=== PATIENT | female | born 1975 | race Caucasian/White ===

== ENCOUNTER 2024-12-21 16:53 | Emergency (ER) | payer OTHER, SELFPAY ==
[2024-12-21 16:58] VITALS: BP 120/85
[2024-12-21 17:32] LABS: % Basophils 0.3 % (0-2); % Eosinophils 1.7 % (0-6); % Immature Granulocytes 0.2 % (0-0.5); % Lymphocytes 23.1 % (20.5-51.1); % Monocytes 9.4 % (1.7-9.3); % Neutrophils 65.3 % (42.2-75.2); Absolute Eosinophils 0.2 10^3/uL (0-0.7); Absolute Lymphocytes 2.1 10^3/uL (1.2-3.4); Absolute Monocytes 0.9 10^3/uL (0.1-0.6); Absolute Neutrophils 5.9 10^3/uL (1.4-6.5); Hematocrit 40.3 % (37.0-47.0); Mean Corp Hgb Conc. 34.7 g/dL (33.0-37.0); Mean Corpuscular Hgb 30.2 pg (27.0-31.0); Mean Platelet Volume 9.9 fL (7.4-10.4); Nucleated Red Blood Cells % 0 %; Platelet Count 257 10^3/uL (130-400); Red Blood Cell Count 4.63 10^6/uL (4.20-5.40); Red Cell Dist. Width 12.1 % (11.5-14.5)
[2024-12-21 17:40] LABS: ALT (SGPT) 25 U/L (0-35); AST (SGOT) 32 U/L (14-36); Albumin 4.5 g/dl (3.5-5.0); Alkaline Phosphatase 79 U/L (38-126); Blood Urea Nitrogen 18 mg/dl (7-17); Carbon Dioxide 23 mmol/L (22-30); Chloride 109 mmol/L (98-107); Glucose 94 mg/dl (70-99); Potassium 4.8 mmol/L (3.5-5.1); Sodium 141 mmol/L (135-145); Total Bilirubin 0.6 mg/dl (0.2-1.3); Total Protein 7.7 g/dl (6.3-8.2); eGFR > 60.00
[2024-12-21 18:36] LABS: Troponin I < 0.012 ng/ml
[2024-12-21 18:46] VITALS: BP 96/78
[2024-12-21 19:00] VITALS: BP 111/76
[2024-12-21 19:09] VITALS: BMI 28.7
--- NOTE | 2024-12-21 19:36 | ED.GENMED ---
History of Present Illness
General
Chief Complaint: Breathing Problem
Source: patient and spouse
Exam Limitations: none
Time Seen by Provider: 12/21/24 18:47
Nursing documentation reviewed up to this point in time: agreed with
History of Present Illness
History of Present Illness:
49-year-old female with past medical history of migraines presents to the ER for evaluation of chest pain. Patient reports onset of symptoms about a week ago and they became acutely worse last night. She reports a sharp pain right chest wall that
radiates towards scapula. Worse with movement, palpation, coughing, breathing. No relieving factors noted. 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 She does have some
associated shortness of breath. She denies any significant cough. She denies any fevers or chills. She denies any GI symptoms. Denies swelling or pain in the legs. She denies similar symptoms in the past. She denies any history of DVT/PE.
Denies any history of cardiac issues.
Past History
Past History
ED Past Medical History: Other (Migraines)
ED Past Surgical History: None
Social History
Tobacco: Non-smoker
Alcohol: None
Drug: None
Living: with family
Employment: Employed
Review of Systems
Review of Systems
All Other Systems: ROS reviewed and negative except as documented in HPI and ROS
Constitutional: Denies fever or chills
Respiratory: Reports trouble breathing; Denies cough
Cardiac: Reports chest pain; Denies palpitations
ABD/GI: Denies abdominal pain, nausea or vomiting
: Denies flank pain
Musculoskeletal: Denies neck pain or back pain
Neurological: Denies dizzy or headache
Phy Exam
Physical Exam
Physical Exam:
General: Awake, alert, oriented x3; no acute distress
Head: Normocephalic, atraumatic
Eyes: Conjunctiva normal, sclera anicteric
Throat: Airway intact, handling secretions
Neck: Trachea midline, supple without meningismus
Lungs: Clear to auscultation bilaterally, no wheezing, rales, rhonchi
Heart: Regular rate and rhythm, no murmurs, gallops, or rubs; mild tenderness right chest wall
Abd: Soft, non distended, nontender
Neuro: No gross deficits
Skin: no rash in area of concern
Extremities: No edema in extremities, equal pulses in all extremities
Scores
Heart Failure Risk
Heart Failure Risk Score: Not Applicable
Heart Score for Chest Pain Patients
STEMI patient?: No
History: Slightly or Non-Suspicious
ECG: Normal
Age: >45 - <65 years
Risk Factors: 1 or 2 Risk Factors
Troponin: </= Normal Limit
Heart Score for Chest Pain Patients: 2
Heart Score Risk: 2.5% MACE over next 6 weeks
PE Wells Score
Symptoms of DVT: No
No alternative diagnosis better explains the illness: Yes
Tachycardia with pulse > 100: Yes
Immobilization (>=3 days) or surgery within previous 4 weeks: No
Prior history of DVT or pulmonary embolism: No
Presence of hemoptysis: No
Presence of malignancy: No
Pulmonary Embolism Risk Score: 7.5
Probability of PE: Pt is high risk
Withdrawal Assessment of Alcohol
Withdrawal Assessment Completed?: Not applicable
Course
Orders/Labs/Results
Orders:
Orders
12/21/24 17:03
Electrocardiogram (*1) Urgent
Reason for Study: Tachycardia
EKG- Treatment ONCE
12/21/24 17:18
Complete Blood Count/With Diff Urgent
Comprehensive Metabolic Panel Urgent
D-Dimer Urgent
Troponin I Urgent
Comment: ADD ON
12/21/24 18:13
Add On- LAB Urgent
Tests Added?: troponin
12/21/24 19:01
CT Chest PE Study Urgent
Comment:
Reason For Exam: right sided chest pain
Abnormal Lab Results
12/21/24
17:18
Absolute Monos (auto) 0.9 H 10^3/uL
(0.1-0.6)
Monocytes % 9.4 H %
(1.7-9.3)
Chloride 109 H mmol/L
(98-107)
BUN 18 H mg/dl
(7-17)
12/21/24 17:18
12/21/24 17:18
Vital Signs
Initial and Last Documented VS:
Initial Vital Signs
Temp Pulse Resp BP Pulse Ox
36.8 C 100 20 120/85 98
12/21/24 16:58 12/21/24 16:58 12/21/24 16:58 12/21/24 16:58 12/21/24 16:58
Last Documented Vital Signs
Temp Pulse Resp BP Pulse Ox
36.8 C 94 17 93/76 97
12/21/24 16:58 12/21/24 20:00 12/21/24 20:00 12/21/24 20:00 12/21/24 20:00
MDM/Problems Addressed
Differential Diagnosis Includes:
Costochondritis, PE, pericarditis, pneumothorax, pneumonia; cholelithiasis/cholecystitis likely likely without abdominal pain or tenderness/nausea/vomiting
MDM/Problems Addressed:
49-year-old female presents for evaluation of atypical right-sided chest pain radiates to the scapula associated with mild shortness of breath. Mild tachycardia but otherwise normal vitals. Physical exam as above. EKG shows sinus rhythm with no
acute ischemic changes. She had labs sent in triage including a CBC and a CMP which were unremarkable. Troponin undetectable. D-dimer was negative but patient moderate risk by Wells score we will proceed with a CTA to rule out PE. Monitor
closely reassess after the above.
CTA negative for PE or any other acute pathology. Vitals normal on clinical reassessment. Suspect likely costochondritis�low suspicion for emergent pathology. Stable for discharge. Will prescribe NSAIDs. Follow-up with PCP. Patient comfortable
this plan. All questions answered.
*Radiology
Radiology exam reviewed: radiology read reviewed
*Pulse Oximetry
Patient hypoxic: no
*EKG
Interpreted by ED Provider?: Yes
Heart Rate: 95
Rate: normal
Rhythm: sinus
[place]: normal axis
Interval: normal interval
QRS Pattern: other (Left anterior fascicular block)
Ischemia: no ischemia
*Critical Care Note
Total Time (30-74mins, 75-104mins- exclusive of procedures): Not Applicable
Data Reviewed
Source: patient, records and spouse
ED Attending Note
-
Portions of this chart may have been created with voice recognition software.� Occasional wrong word or��sound alike� substitutions may have occurred due to the inherent limitations of voice recognition software.
Discharge Plan
Departure
Patient Disposition: Home (Routine Discharge)
Date of Disposition: 12/21/24
Time of Disposition: 20:16
Patient with high blood pressure during this ER visit?: No
Discharge Problem:
Chest pain
Instructions: Costochondritis, Chest Pain PCP Follow Up
Prescriptions:
New
naproxen 500 mg tablet
500 mg PO BID Qty: 14 0RF
No Action
rizatriptan [Maxalt] 10 MG tablet
10 mg PO DAILY PRN (Reason: migraine)
topiramate [Topamax] 200 MG tablet
400 mg PO HS
Sleep Time
1 tab PO HS PRN (Reason: insomnia)
amoxicillin-pot clavulanate 1 TABLET tablet
1 tab PO Q12 Qty: 19 0RF
albuterol sulfate [Proventil HFA] 90 MCG/PUFF HFA aerosol inhaler
2 puff inhalation Q4HPRN PRN (Reason: shortness of breath) Qty: 1 0RF
Referrals:
Rajeev Mares I., DO [Family Provider] - Follow up in 5-7 days
Activity Restrictions/Additional Instructions:
Thank you for visiting the Emergency Department at [facility].
1. Please schedule a follow up appointment as directed. Call first thing tomorrow morning to make an appointment.
2. If indicated, please take your medications as instructed and indicated on discharge paperwork.
3. If any of your symptoms do not improve, or persist, or become more severe within 6-12 hours, please return to the emergency department for further care.
4. Please return to the emergency department if you develop a headache, neck pain/stiffness, fever greater than 100.4F, chest pain, shortness of breath, persistent nausea, vomiting, slurred speech, difficulty walking, numbness/tingling, weakness,
signs of infection or any other symptoms that are worrisome to you.
Please call [phone] if you have any questions.
Interventions
Interventions:
*Risk Screen - Suicide Last Done: 12/21/24 16:58
*General Assessment Last Done: 12/21/24 19:09
*Neglect/Abuse Screening Last Done: 12/21/24 19:09
*ED- Fall Risk Assessment Last Done: 12/21/24 19:09
*ED COVID-19 Vaccine History Last Done: 12/21/24 19:09
ED- Cardiac Assessment Last Done: 12/21/24 19:09
ED- Pulmonary Assessment Last Done: 12/21/24 19:09
Discharge Date and Time
Print Language: [id number]
[2024-12-21 20:00] VITALS: BP 93/76
== END 2024-12-21 20:30 | disposition home or self-care (01) ==
LOC: EMR 16:53
PROVIDERS: EMERGENCY PHYSICIAN Emergency Medicine; FAMILY PHYSICIAN Internal Medicine
DX: R07.89 Other chest pain (principal); R00.0 Tachycardia, unspecified
CPT/HCPCS: 99284; 71275; 80053; 84484; 85025; 85379; 93005; Q9967